=== PATIENT | female | born 1970 | race Caucasian/White ===

== ENCOUNTER 2022-05-03 16:09 | Inpatient (IN) | payer BC, OTHER ==
[~2022-05-03] VITALS: Ht 165.1 cm; Wt 70.5 kg
[2022-05-03] MEDS ORDERED: HOME MED LIST COMPLETE! XX SCH (22:45)
[2022-05-03] MEDS ORDERED: NICOTINE 21MG/24HR 1 EA TRANSDERMAL TD PRN (22:55)
[2022-05-03] MEDS ORDERED: traZODone 50 MG TAB PO PRN (22:55)
[2022-05-03] MEDS ORDERED: ACETAMINOPHEN TAB 650MG DOSE (2X325MG) PO PRN (22:55)
[2022-05-03] MEDS ORDERED: IBUPROFEN 400MG TAB PO PRN (22:55)
[2022-05-03] MEDS ORDERED: MAALOX 30 ML SUSP *UDC PO PRN (22:55)
[2022-05-03] MEDS ORDERED: MOM 30ML SUSPENSION UDC PO PRN (22:55)
[2022-05-04] MEDS ORDERED: UNRESOLVED CLARIFICATION ENTRY XX SCH (00:01)
[2022-05-04 06:22] VITALS: BP 133/81
[2022-05-04] MEDS ORDERED: HOME MED LIST COMPLETE! XX SCH (09:10)
[2022-05-04] MEDS: ESCITALOPRAM OXALATE 5MG TABLET (LEXAPRO) PO SCH (09:46)
[2022-05-04] MEDS ORDERED: CYCLOBENZAPRINE 5MG TABLET PO PRN (10:50)
[2022-05-04] MEDS ORDERED: ONDANSETRON 4MG ORAL DISINTEGRATING TAB PO PRN (10:50)
[2022-05-04] MEDS ORDERED: LORazepam 1 MG TAB PO PRN (10:50)
[2022-05-04] MEDS ORDERED: IBUPROFEN 600MG TAB PO PRN (10:50)
[2022-05-04] MEDS: NITROFURANTOIN (MACROBID) 100 MG CAP PO SCH ×2 (11:02→20:42)
[2022-05-04 11:37] LABS: BASO % 0.6 % (0.0-1.0); EOS % 0.6 % (0.0-3.0); HEMATOCRIT 43.8 % (36.0-47.0); HEMOGLOBIN 14.1 g/dl (12.0-15.5); LYMPH # 0.3 10^3/uL (1.5-5.0); LYMPH % 9.7 % (24.0-44.0); MEAN CORPUSCULAR HEMOGLOBIN 28.1 pg (27.0-33.0); MEAN CORPUSCULAR HGB CONC 32.2 g/dl (32.0-36.5); MEAN CORPUSCULAR VOLUME 87.3 fl (80.0-96.0); MONO # 0.4 10^3/uL (0.0-0.8); MONO % 12.9 % (2.0-8.0); NEUTROPHILS # 2.6 10^3/uL (1.5-8.5); NEUTROPHILS % 76.2 % (36.0-66.0); PLATELET COUNT, AUTOMATED 279 10^3/uL (150-450); RED BLOOD COUNT 5.02 10^6/uL (4.00-5.40); WHITE BLOOD COUNT 3.4 10^3/uL (4.0-10.0)
[2022-05-04] MEDS: cloNIDine 0.1MG TABLET PO PRN (11:54)
[2022-05-04 11:55] LABS: ALBUMIN 3.8 G/DL (3.2-5.2); ALKALINE PHOSPHATASE 109 U/L (46-116); ALT/SGPT 21 U/L (7.0-40); AST/SGOT 21 U/L (<34); BILIRUBIN,TOTAL 0.5 MG/DL (0.3-1.2); BLOOD UREA NITROGEN 18 MG/DL (9-23); CALCIUM LEVEL 8.9 MG/DL (8.5-10.1); CARBON DIOXIDE LEVEL 26 MMOL/L (20-31); CHLORIDE LEVEL 104 MMOL/L (98-107); CREATININE FOR GFR 0.67 MG/DL (0.55-1.30); GLOMERULAR FILTRATION RATE > 60.0 (>58); GLUCOSE, FASTING 94 MG/DL (60-100); POTASSIUM SERUM 4.5 MMOL/L (3.5-5.1); SODIUM LEVEL 138 MMOL/L (136-145); TOTAL PROTEIN 7.1 G/DL (5.7-8.2)
[2022-05-04] MEDS: diphenhydrAMINE 25MG CAP PO PRN (11:55)
[2022-05-04 11:58] LABS: THYROID STIMULATING HORMONE 1.051 uIU/ML (0.55-4.78)
[2022-05-04] MEDS: LORazepam 1 MG TAB PO PRN ×2 (14:13→23:22)
[2022-05-04 16:17] VITALS: BP 107/67
[2022-05-05 06:47] VITALS: BP 123/71
[2022-05-05] MEDS: cloNIDine 0.1MG TABLET PO PRN ×2 (09:48→20:29)
[2022-05-05] MEDS: diphenhydrAMINE 25MG CAP PO PRN ×2 (09:48→20:28)
[2022-05-05] MEDS: NITROFURANTOIN (MACROBID) 100 MG CAP PO SCH ×2 (09:50→20:28)
[2022-05-05] MEDS: ESCITALOPRAM OXALATE 5MG TABLET (LEXAPRO) PO SCH (09:50)
[2022-05-05 16:14] VITALS: BP 133/76
[2022-05-05] MEDS: LORazepam 1 MG TAB PO PRN (17:33)
[2022-05-05 20:29] VITALS: BP 135/85
[2022-05-06 06:31] VITALS: BP 124/70
[2022-05-06] MEDS ORDERED: NITR100C2 PO (08:56)
[2022-05-06] MEDS ORDERED: LEXA5TAB13 PO (08:56)
[2022-05-06] MEDS ORDERED: TRAZ-252 PO (08:56)
[2022-05-06] MEDS: NITROFURANTOIN (MACROBID) 100 MG CAP PO SCH (09:08)
[2022-05-06] MEDS: ESCITALOPRAM OXALATE 5MG TABLET (LEXAPRO) PO SCH (09:09)
[2022-05-06] MEDS: LORazepam 1 MG TAB PO PRN (09:09)
== END 2022-05-06 11:07 | disposition home or self-care (01) | DRG 754 ==
LOC: M ED 16:09 → M ED INP 22:52 → M PSY 23:37
PROVIDERS: ADMIT Student in an Organized Health Care Education/Training Program; ATTEND Student in an Organized Health Care Education/Training Program
DX: F32.9 Major depressive disorder, single episode, unspecified (principal); R45.851 Suicidal ideations; N39.0 Urinary tract infection, site not specified; F43.25 Adjustment disorder with mixed disturbance of emotions and conduct; F11.93 Opioid use, unspecified with withdrawal; F17.290 Nicotine dependence, other tobacco product, uncomplicated; Z91.51 Personal history of suicidal behavior; Z63.0 Problems in relationship with spouse or partner; Z62.810 Personal history of physical and sexual abuse in childhood; Z83.3 Family history of diabetes mellitus